=== PATIENT | female | born 1965 | race Two or more races ===

== ENCOUNTER → 2016-10-07 | Outpatient (CLI) | payer OTHER | END | disposition home or self-care (01) | LOC: RAD 09:07 | DX: M50.322 Other cervical disc degeneration at C5-C6 level (principal); S13.160A Subluxation of C5/C6 cervical vertebrae, initial encounter; M48.02 Spinal stenosis, cervical region; M25.78 Osteophyte, vertebrae; M85.68 Other cyst of bone, other site; M79.641 Pain in right hand; M25.521 Pain in right elbow; X58.XXXA Exposure to other specified factors, initial encounter; Y93.89 Activity, other specified; Y92.89 Other specified places as the place of occurrence of the external cause; Y99.8 Other external cause status | CPT/HCPCS: 72050 ==